=== PATIENT | male | born 1970 | race African-American/Black ===

== ENCOUNTER 2016-12-04 05:09 | Emergency (ER) | payer SELFPAY ==
[~2016-12-04] VITALS: Ht 165.1 cm; Wt 104.0 kg
[2016-12-04 05:36] VITALS: BP 150/103
== END 2016-12-04 06:23 | disposition left against medical advice (07) ==
LOC: ER 05:09
DX: R10.9 Unspecified abdominal pain (principal); Z53.21 Procedure and treatment not carried out due to patient leaving prior to being seen by health care provider

== ENCOUNTER 2017-03-01 07:32 | Emergency (ER) | payer BC ==
[~2017-03-01] VITALS: Ht 180.3 cm; Wt 100.0 kg
[2017-03-01 09:11] VITALS: BP 166/97
== END 2017-03-01 09:57 | disposition home or self-care (01) ==
LOC: ER 07:53
DX: K22.4 Dyskinesia of esophagus (principal)
CPT/HCPCS: 93005; 99283; Z7610